=== PATIENT | female | born 1990 | race African-American/Black ===

== ENCOUNTER 2019-02-03 15:35 | Emergency (ER) | payer MEDICAID, OTHER ==
[~2019-02-03] VITALS: Ht 154.9 cm; Wt 49.9 kg
[~2019-02-03 15:35] MED LIST: DIFLUCAN150 MG PO; DOXYCYCLINE MO100 MG ORAL; METRONIDAZOLE500 MG ORAL; NITROFURANTOIN100 MG PO; NKM
[2019-02-03 15:53] VITALS: BP 103/69
--- NOTE | 2019-02-03 16:05 | NUR ---
ED Nurse Note: pt walked in c/o left shoulder arm knee and back pain. nakul collado done x-ray at bedside now,
[2019-02-03] MEDS ORDERED: IBUPROFEN600 MG ORAL (16:37)
[2019-02-03] MEDS ORDERED: ROBAXIN-750750 MG PO (16:37)
--- NOTE | 2019-02-03 16:42 | NUR ---
ED Nurse Note: Pt cleared by health care Provider for discharge. DC instructions/prescription was given and explained to pt and verbalized understanding of teachings. All medical deviecs such as ID band removed. Pt is AAO x4, ambulatory and left with all personal belongings.
--- NOTE | 2019-02-03 16:42 | Diagnostic Imaging Report ---
Indication: Chest pain status post injury Technique: XRAY Chest 1v Comparison: None Findings: Heart size and mediastinal contours are within normal limits for AP technique. There is no focal airspace consolidation, pneumothorax or pleural effusion. Osseous structures demonstrate no acute abnormality. Impression: No radiographic evidence of acute cardiopulmonary disease.
--- NOTE | 2019-02-03 16:42 | Diagnostic Imaging Report ---
Indication: Shoulder pain status post injury Technique: XRAY Shoulder Compl L Comparison: None Findings: Bone mineralization within normal limits. There is no acute fracture. Glenohumeral and acromioclavicular joints are maintained. Imaged portions of the left lung are clear. Impression: No acute fracture or dislocation.
[2019-02-03 16:45] VITALS: BP 103/69
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
== END 2019-02-03 16:42 | disposition home or self-care (01) ==
LOC: EMR 16:15
DX: S40.022A Contusion of left upper arm, initial encounter (principal); S40.012A Contusion of left shoulder, initial encounter; Y04.2XXA Assault by strike against or bumped into by another person, initial encounter; Y92.9 Unspecified place or not applicable; Z88.0 Allergy status to penicillin; Z88.8 Allergy status to other drugs, medicaments and biological substances; I10 Essential (primary) hypertension; R07.9 Chest pain, unspecified; M25.562 Pain in left knee
CPT/HCPCS: 71045; 99284

== ENCOUNTER 2020-05-23 08:57 | Emergency (ER) | payer MEDICAID ==
[~2020-05-23] VITALS: Ht 157.5 cm; Wt 59.0 kg
[~2020-05-23 08:57] MED LIST changes: +IBUPROFEN600 MG ORAL; +ROBAXIN-750750 MG PO
[2020-05-23 09:07] VITALS: BP 137/81
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
--- NOTE | 2020-05-23 09:13 | Emergency Room Report ---
History of Present Illness General Chief Complaint: Dyspnea/Respdistress Source: Patient Present Illness HPI Patient is a 29-year-old female presents for increased difficulty with breathing. Reports of a gradual onset approximately May 18. States has had previous cervical disc surgery in the past. Had prior history of rifampin use for latent TB. Had increased cough for the past few days. Had been staying at a hotel and had been having problems since using the air conditioner. Patient believes she was exposed to mold. Reports having some associated shortness of breath. Takes inhalers intermittently. States she is a smoker of marijuana occasionally. Denies cigarette smoking. Reports having prior history of anxiety for which she takes BuSpar. Allergies: Coded Allergies: CEPHALEXIN (Unverified Allergy, Intermediate, 10/13/14) PENICILLIN (Verified Allergy, Unknown, 05/30/15) COVID-19 Screening Contact w/high risk pt: No Experienced COVID-19 symptoms?: Yes COVID-19 Testing performed BRAKE OPERATOR: No COVID-19 Screening: Negative COVID-19 COVID-19 Testing Source: nasal Patient History Past Medical History: see triage record Reviewed Nursing Documentation: PMH: Agreed; PSxH: Agreed Nursing Documentation-PMH Past Medical History: No History, Except For Hx Hypertension: Yes Hx Asthma: Yes Hx COPD: No Hx Neurological Problems: No Review of Systems All Other Systems: negative except mentioned in HPI Physical Exam Vital Signs Date Time Temp Pulse Resp B/P (MAP) Pulse Ox O2 Delivery O2 Flow Rate FiO2 05/23/20 08:57 98.8 118 21 137/81 (99) 99 Room Air Sp02 EP Interpretation: reviewed, normal General Appearance: normal inspection, well appearing, no apparent distress, alert, GCS 15, non-toxic Head: atraumatic ENT: normal ENT inspection, hearing grossly normal, normal voice, other - Slight pharyngeal erythema Neck: normal inspection, full range of motion, supple, no bony tend Respiratory: normal inspection, lungs clear, normal breath sounds, no respiratory distress, no retraction, wheezing Cardiovascular #1: regular rate, rhythm, no edema Gastrointestinal: normal inspection, normal bowel sounds, non tender, soft, no guarding, no hernia Genitourinary: no CVA tenderness Musculoskeletal: normal inspection, back normal, decreased range of motion, normal range of motion Neurologic: alert, motor strength/tone normal, sped teacher III-XII nml as tested, oriented x3, responsive, speech normal, normal inspection Psychiatric: normal inspection, judgement/insight normal, mood/affect normal Skin: no rash Medical Decision Making Diagnostic Impression: Primary Impression: Bronchitis ER Course Patient presented for difficulty breathing. Differential diagnosis include was not limited to viral pharyngitis, tuberculosis, coronavirus infection, pneumonia among others. Extremity was ordered to patient's symptoms. Patient does appear to have some slight wheezing without evidence of airway obstruction. She has good air movement.Coronavirus testing was negative. Patient's laboratory testing was unremarkable.Patient does have prior history of asthma and had improvement with breathing treatment. Patient believes this to be related to recent mold exposure.She is given prescription for oral steroids. Chest x-ray showed no acute process. The patient is advised to follow up with primary care doctor in 1-2 days. Patient is advised to return if any worsening condition or if any changes in status that are concerning. This report is dictated with Cyphort dockmaster software which may occasionally lead to discrepancies related to use of this software. Labs Test 05/23/20 09:18 Urine HCG, Qualitative Negative (NEGATIVE) Last Vital Signs Date Time Temp Pulse Resp B/P (MAP) Pulse Ox O2 Delivery O2 Flow Rate FiO2 05/23/20 09:07 98.8 21 137/81 99 Room Air 05/23/20 09:07 118 Status: improved Disposition: HOME, SELF-CARE Condition: Stable Scripts Guaifenesin/Dextromethorphan* (Guaifenesin Dm Syrup*) 5 Ml Syrup 10 ML ORAL Q6H PRN for FOR COUGH, #118 ML Prov: Rajendra Alonso MD 05/23/20 Prednisone* (PREDNISONE*) 20 Mg Tablet 40 MG ORAL DAILY, #10 TAB Prov: Rajendra Alonso MD 05/23/20 Albuterol Sulfate* (Albuterol Sulfate Hfa*) 8.5 Gm Hfa.aer.ad 2 PUFF INH Q4H, #1 INH Prov: Rajendra Alonso MD 05/23/20 Rajendra Alonso MD May 23, 2020 09:13
[2020-05-23] MEDS ORDERED: Albuterol/Ipratropium 3ml neb HHN ONE (09:15)
--- NOTE | 2020-05-23 10:17 | NUR ---
ED Nurse Note: RT by bed side
[2020-05-23] MEDS ORDERED: ALBUTEROL SULF8.5 G1 INH (10:59)
[2020-05-23] MEDS ORDERED: GUAIFENESIN DM118 M1 ORAL (10:59)
[2020-05-23] MEDS ORDERED: PREDNISONE20 MG ORAL (10:59)
[2020-05-23 11:13] VITALS: BP 133/71
--- NOTE | 2020-05-23 11:13 | NUR ---
ED Nurse Note: Pt cleared by ERMD for discharge. DC instructions/prescription was given and explained to pt and verbalized understanding of teachings. All medical deviecs such as ID band removed. Pt is AAO x4, ambulatory and left with all personal belongings. Pt will take uber going home.
--- NOTE | 2020-05-23 15:09 | Diagnostic Imaging Report ---
Indication: Shortness of breath Technique: One view of the chest Comparison: 01/26/2019 Findings: Lungs and pleural spaces are clear. Heart size is normal. There is a lower cervical disc prosthesis, not definitely evident previously although potentially excluded from the imaging volume. No other significant change Impression: No acute process
== END 2020-05-23 11:13 | disposition home or self-care (01) ==
LOC: EDBD 08:57 → EMR 09:20
DX: J20.9 Acute bronchitis, unspecified (principal); I10 Essential (primary) hypertension; Z86.15 Personal history of latent tuberculosis infection; Z88.0 Allergy status to penicillin; Z88.8 Allergy status to other drugs, medicaments and biological substances
CPT/HCPCS: 71045; 81025; U0002; Z7502; 99283; J7620